=== PATIENT | male | born 1960 | race Caucasian/White ===

== ENCOUNTER 2021-03-14 05:53 | Day surgery (SDC) | payer OTHER ==
[2021-03-14] MEDS ORDERED: Lactated Ringers 1,000 ML IV SCH (06:30)
[2021-03-14] MEDS ORDERED: DIPRIVAN 200 MG/20 ML IV ONE (06:57)
[2021-03-14 07:45] VITALS: O2SAT 98
[2021-03-14 08:06] VITALS: BP 132/72; PULSE 72
--- NOTE | 2021-03-15 08:28 | OP ---
SURGERY DATE/TIME: 03/14/2021 0656 PREOPERATIVE DIAGNOSIS: Screening exam. POSTOPERATIVE DIAGNOSIS: Small polyp sigmoid colon. PROCEDURE: Colonoscopy with cold forceps biopsy. SURGEON: Dr. Martinez. ANESTHESIA: MAC. Medications given by anesthesia department. HISTORY: The patient is a 60 year-old white male patient who presents now for screening colonoscopy. He was appraised of the risks of the procedure including the risk of perforation, phlebitis, untoward reaction to medication, bleeding and missed lesions. The patient verbalized his understanding and desired to have the procedure performed. DESCRIPTION OF PROCEDURE: The patient was given the medications by the anesthesia department. He had continuous pulse oximetry, ECG monitoring, intermittent blood pressure monitoring and tidal CO2 monitoring during the examination. He was placed in the left lateral decubitus position. A digital rectal examination was performed and revealed normal anal sphincter tone, no masses and normal prostate. The flexible Olympus pediatric colonoscope was used to intubate the rectum. A view of the colon was developed sequentially to the cecum. Upon insertion and withdrawal, including a retroflex view in the rectum was noted a small polyp in the sigmoid colon this is biopsied using cold biopsy technique to destroy the lesion. Upon insertion and withdrawal including retroflex view in the rectum, no other mucosal lesions were encountered. The scope was removed from the patient who tolerated the procedure well and was sent back to OP recovery in good condition. The prep was noted to be good.
== END 2021-03-14 08:06 | disposition home or self-care (01) ==
LOC: SDC 05:53
PROVIDERS: ATTEND Family Medicine
DX: Z12.11 Encounter for screening for malignant neoplasm of colon (principal); D12.5 Benign neoplasm of sigmoid colon
CPT/HCPCS: 88305; J2704

== ENCOUNTER 2024-07-01 19:46 | Emergency (ER) | payer BC ==
--- NOTE | 2024-07-01 20:32 | ERPHSYRPT ---
- History of Present Illness Time Seen by Provider: 07/01/24 20:31 Source: patient, family Exam Limitations: no limitations Physician History: This is a 63-year-old white male patient who presents to the emergency department by private vehicle accompanied by his spouse secondary to left hip and buttock pain after a fall. The patient was walking down steps when he fell down 3 steps onto concrete landing on his left buttock and left hip. He can ambulate on it but it hurts to do so. When he is not ambulating on it he states the pain is approximately a 7 out of 10. When he is ambulating it is approximately 9 or 10 out of 10. There are no other complaints of pain anywhere else on his body. Patient has a history of hypertension and hyperlipidemia. Timing/Duration: today Occured at: home Context: fall Quality: aching Hip Pain Location: hip (L) Severity of Pain-Max: moderate Severity of Pain-Current: moderate Modifying Factors: Improves With: movement Symptoms prior to fall: none Associated Symptoms: denies symptoms Allergies/Adverse Reactions: No Known Drug Allergies Allergy (Verified 03/14/21 06:04) Home Medications: Simvastatin [Zocor] 20 mg PO DAILY 03/14/21 [History] Benazepril HCl 20 mg PO DAILY 07/01/24 [History] Travel Risk - International Travel Have you traveled outside of the country in past 3 weeks: No - Emerging Infectious Disease Are you exhibiting symptoms associated with any current EIDs: No - Review of Systems Constitutional: No Symptoms Eyes: No Symptoms Ears, Nose, & Throat: No Symptoms Respiratory: No Symptoms Cardiac: No Symptoms Abdominal/Gastrointestinal: No Symptoms Genitourinary Symptoms: No Symptoms Musculoskeletal: Fall, Injury (Left hip and left buttock) Neurological: No Symptoms Psychological: No Symptoms Endocrine: No Symptoms Hematologic/Lymphatic: No Symptoms Immunological/Allergic: No Symptoms All Other Systems: Reviewed and Negative - Past Medical History Pertinent Past Medical History: Yes Neurological History: No Pertinent History ENT History: No Pertinent History Cardiac History: Other Respiratory History: No Pertinent History Endocrine Medical History: No Pertinent History Musculoskeletal History: No Pertinent History GI Medical History: Hernia History: No Pertinent History Psycho-Social History: No Pertinent History Male Reproductive Disorders: No Pertinent History Other Medical History: heart murmur - Past Surgical History Past Surgical History: Yes Neuro Surgical History: No Pertinent History Cardiac: No Pertinent History Respiratory: No Pertinent History Gastrointestinal: Appendectomy, Hernia Repair Genitourinary: No Pertinent History Musculoskeletal: No Pertinent History Male Surgical History: No Pertinent History - Social History Smoking Status: Never smoker Exposure to second hand smoke: No Drug Use: none - Nursing Vital Signs Nursing Vital Signs: Initial Vital Signs Temperature 98.5 F 07/01/24 20:32 Pulse Rate 76 07/01/24 20:32 Respiratory Rate 18 07/01/24 20:32 Blood Pressure 142/81 07/01/24 20:32 O2 Sat by Pulse Oximetry 98 07/01/24 20:32 Pain Scale Pain Intensity 3 - Physical Exam General Appearance: no apparent distress, alert, anxiety Eye Exam: PERRL/EOMI, eyes nml inspection Ears, Nose, Throat Exam: normal ENT inspection, moist mucous membranes Neck Exam: normal inspection, non-tender, supple, full range of motion Respiratory Exam: normal breath sounds, lungs clear, airway intact, No chest tenderness, No respiratory distress Cardiovascular Exam: regular rate/rhythm, normal heart sounds, normal peripheral pulses Gastrointestinal Exam: soft, normal bowel sounds, No tenderness Rectal Exam: not done Back Exam: normal inspection, normal range of motion, No CVA tenderness, No vertebral tenderness Extremity Exam: normal inspection, normal range of motion, pelvis stable, tenderness (Left hip and left buttock with movement and palpation), No deformities Neurologic Exam: alert, oriented x 3, cooperative, maintenance aide II-XII nml as tested, normal mood/affect, nml cerebellar function, nml station & gait, sensation nml Skin Exam: normal color, warm, dry Lymphatic Exam: No adenopathy SpO2 Interpretation: normal O2 Delivery: Room Air - Course Nursing assessment & vital signs reviewed: Yes Ordered Tests: Active Orders 24 hr Category Date Time Status HIP UNI (2V) INCL PEL IF DONE Stat Exams 07/01/24 21:56 Taken Medication Summary Discontinued Medications Generic Name Dose Route Start Last Admin Trade Name Freq PRN Reason Stop Dose Admin Oxycodone/Acetaminophen 1 tab 07/01/24 21:55 07/01/24 22:05 Oxycodone Hcl/Apap 5 Mg/325 Mg Tablet PO 07/01/24 21:56 1 tab STAT STA Administration Oxycodone/Acetaminophen Confirm 07/01/24 22:04 Oxycodone Hcl/Apap 5 Mg/325 Mg Tablet Administered 07/01/24 22:05 Dose 1 tab .ROUTE .STK-MED ONE - Progress Progress: improved, pain not gone completely Progress Note: 07/01/24 23:04 My medical decision making of the assignment of low complexity to this patient's medical issue today is based on review of the patient's past medical history, review of the patient's medication list, reviewed patient drug allergy list, history present illness and physical findings on examination. The workup in this patient includes x-ray of the pelvis and left hip. Differential diagnosis includes but is not limited to fracture/dislocation, contusion 07/01/24 23:07 I interpreted the preliminary report of the patient's left hip x-ray. I do not appreciate an acute fracture or dislocation. I reported this to the patient and the patient's spouse. They are aware I am reading the preliminary report. If the interpretation from the radiologist differs from mine, they will get a phone call tomorrow morning, 07/02/2024 Counseled pt/family regarding: diagnosis, need for follow-up, rad results Medical Desision Making - Independent Historian Additional History obtained from: Spouse - Diagnostic Testing Diagnostic test were ordered, analyzed, and reviewed by me: Yes Radiological Interpretation: Interpreted by me - Risk of complications The pt has a mod risk of morbidity or mortality based on: Need for prescription drug management - Departure Departure Disposition: Home Clinical Impression: Fall with no significant injury, Contusion of left hip, Contusion of left buttock Condition: Stable Critical Care Time: No Referrals: ALEXI JOSEPH [Primary Care Provider] - Follow up/PCP as directed Additional Instructions: Ice pack to tender area 3-4 times a day for the next 2 to 3 days. Add 600 mg ibuprofen with food 3 times a day for the next 5 days, if there are no contraindications, to help control pain. Call your primary care provider tomorrow, 07/02/2024, to make arrangements for follow-up appointment for further evaluation and management and further testing if your pain persists Prescriptions: Oxycodone HCl/Acetaminophen [Percocet 5-325 mg Tablet] 1 each PO Q12H PRN PRN #6 tablet MDD 2 PRN Reason: Moderate To Severe Pain Orphenadrine Citrate 100 mg [Norflex 100 MG Tablet] 100 mg PO BID #10 tab
[2024-07-01 20:36] VITALS: RESP 18; TEMP 98.5
[2024-07-01] MEDS ORDERED: PERCOCET TABLET 5/325MG ONE ×2 (22:04→23:36)
[2024-07-01] MEDS: PERCOCET TABLET 5/325MG PO STA ×2 (22:05→23:37)
[2024-07-01 22:13] VITALS: O2SAT 98
[2024-07-01 23:28] VITALS: BP 125/81; PULSE 64
--- NOTE | 2024-07-02 08:40 | XRAY ---
Indication: Status post fall/injury. Comparison: None 2 view left hip obtained. No bony, articular, or soft tissue abnormalities.
== END 2024-07-01 23:52 | disposition home or self-care (01) ==
LOC: ED 19:46
DX: S70.02XA Contusion of left hip, initial encounter (principal); S30.0XXA Contusion of lower back and pelvis, initial encounter; W10.9XXA Fall (on) (from) unspecified stairs and steps, initial encounter; I10 Essential (primary) hypertension; E78.5 Hyperlipidemia, unspecified; Z79.899 Other long term (current) drug therapy; Z79.891 Long term (current) use of opiate analgesic
CPT/HCPCS: 73502; 99283; A9270-GY